=== PATIENT | female | born 1995 | race Caucasian/White ===

== ENCOUNTER 2021-12-20 08:12 | Emergency (ER) | payer BC ==
[~2021-12-20] VITALS: Ht 157.5 cm; Wt 86.6 kg
[2021-12-20 08:21] VITALS: BP 120/77
--- NOTE | 2021-12-20 08:25 | NUR ---
PT STAYING IN OUTSIDE OF LOBBY
--- NOTE | 2021-12-20 08:30 | NUR ---
26 Y/O FEMALE BIB SELF C/O OF BODY ACHES AND MALAISE X4 DAYS, PER PT SHE WAS TESTED YESTERDAY FOR FLU AND COVID IN [facility] BUT TESTED NEGATIVE. NO COUGH, NO FEVERS NOTED NKA PMH: DENIES
--- NOTE | 2021-12-20 08:31 | NUR ---
SWABS WALKED TO LAB
--- NOTE | 2021-12-20 09:21 | NUR ---
DR HOWARD AT PT SIDE FOR EVAL
[2021-12-20] MEDS ORDERED: NACL 0.9% 1,000 ML IV ONE (09:25)
--- NOTE | 2021-12-20 09:30 | NUR ---
PT AMBULATED TO BATHROOM WITH STEADY GAIT
[2021-12-20 09:55] LABS: BASOPHILS % (AUTO) 0.5 % (0.0-2.0); EOSINOPHILS # (AUTO) 0.1 K/uL (0-0.4); EOSINOPHILS % (AUTO) 1.2 % (0.0-4.0); HEMATOCRIT 42.8 % (36-48); LYMPHOCYTES # (AUTO) 3.2 K/uL (2.5-16.5); LYMPHOCYTES % (AUTO) 31.9 % (20.5-51.1); MEAN CORPUSCULAR HEMOGLOBIN 24 pg (27-31); MEAN CORPUSCULAR HGB CONC 33 g/dL (33-37); MEAN CORPUSCULAR VOLUME 74.6 fL (80-94); MONOCYTES # (AUTO) 1.1 K/uL (0.8-1.0); MONOCYTES % (AUTO) 11.2 % (1.7-9.3); NEUTROPHILS # (AUTO) 5.5 K/uL (1.8-7.7); NEUTROPHILS % (AUTO) 55.2 % (42.2-75.2); PLATELET COUNT (AUTO) 273 K/uL (140-450); RED BLOOD CELL COUNT(AUTO) 5.73 MIL/uL (4.20-5.40); WHITE BLOOD COUNT (AUTO) 9.9 K/uL (4.8-10.8)
[2021-12-20 10:01] LABS: APPEARANCE,URINE CLEAR (CLEAR); BILIRUBIN,URINE NEGATIVE (NEGATIVE); BLOOD, URINE TRACE-I (NEGATIVE); COLOR,URINE YELLOW (YELLOW); LEUKOCYTE ESTERASE ,URINE NEGATIVE (NEGATIVE); NITRITE, URINE NEGATIVE (NEGATIVE); PH,URINE 5.5 (5.0-9.0); UGLUCOSE NEGATIVE (NEGATIVE)
[2021-12-20 10:18] LABS: ALBUMIN 4.1 g/dL (3.4-5.0); ANION GAP 12.5 (8-16); CARBON DIOXIDE 27.5 mmol/L (21-32); CREATININE 0.9 mg/dL (0.6-1.3); FREE T4 (FREE THYROXINE) 1.28 ng/dL (0.76-1.46); TOTAL BILIRUBIN 0.4 mg/dL (0.0-1.0)
[2021-12-20 10:22] LABS: WBC,URINE 0-5 /HPF (0-5)
--- NOTE | 2021-12-20 11:35 | NUR ---
IV removed, catheter intact and site benign. Applied folded 4x4 gauze and tape to stop bleeding.
--- NOTE | 2021-12-20 11:36 | NUR ---
Patient discharged with v/s stable. Written and verbal after care instructions ABOUT WEAKNESS given and explained. Patient verbalized understanding. Ambulatory with steady gait. All questions addressed prior to discharge. Advised to follow up with PMD.
[2021-12-20 11:37] VITALS: BP 114/67
== END 2021-12-20 11:36 | disposition home or self-care (01) ==
LOC: MED 08:12
DX: R53.1 Weakness (principal); Z20.822 Contact with and (suspected) exposure to COVID-19; M54.50 Low back pain, unspecified
CPT/HCPCS: 36415; 80053; 81001; 81025; 84439; 85025; 87086; 93005; 96360; 99284; J7030